=== PATIENT | female | born 1995 | race Caucasian/White ===

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

== ENCOUNTER 2017-11-11 02:43 | Emergency (ER) | payer OTHER ==
[2017-11-11] MEDS ORDERED: IBUPROFEN 600 MG TAB PO ONE ×2 (03:38→03:39)
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
[2017-11-11 04:34] VITALS: BP 122/76
== END 2017-11-11 04:33 | disposition home or self-care (01) ==
LOC: EDUNIT#
DX: S69.91XA Unspecified injury of right wrist, hand and finger(s), initial encounter (principal); J45.909 Unspecified asthma, uncomplicated; Y08.89XA Assault by other specified means, initial encounter
CPT/HCPCS: L3807